=== PATIENT | male | born 1995 | race Caucasian/White ===

== ENCOUNTER 2019-09-03 21:43 | Emergency (ER) | payer SELFPAY ==
[~2019-09-03] VITALS: Ht 180.3 cm; Wt 72.1 kg
[2019-09-03 21:52] VITALS: BP 118/66
--- NOTE | 2019-09-03 21:56 | NUR ---
PT AMBULATED TO CHAIR C WITH STEADY GAIT.
--- NOTE | 2019-09-03 21:59 | NUR ---
PT TRANSFERRED TO BED 04 WITH STEADY GAIT.
--- NOTE | 2019-09-03 22:04 | NUR ---
23 YO M BIB SELF FOR C/C OF DIFFICULTY SWALLOWING AND 6/10 CHEST TIGHTNESS/PRESSURE. 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 PT STATES HIS SYMPTOMS HAVE BEEN GETTING INCREASINGLY WORSE THE PAST 2 WEEKS. PT DENIES TAKING ANY RX FOR DISCOMFORT. LUNG SOUNDS CLEAR THROUGHOUT. S1 S2 HEARD. PT DENIES N/V/D. DENIES COUGH, TRAVEL, OR FEVER. BED LCOKED AND IN LOWEST POSTION. SIDE RAILS X1. NKA NO MED HX NO RX
[2019-09-03] MEDS ORDERED: ALUMINUM HYD/MAG/SIMETHICONE 30 ML UDC PO ONE (22:20)
[2019-09-03] MEDS ORDERED: PANTOPRAZOLE 40 MG TABEC PO ONE (22:20)
[2019-09-03 22:44] VITALS: BP 118/66
--- NOTE | 2019-09-03 22:45 | NUR ---
Patient discharged with v/s stable. Written and verbal after care instructions given and explained. Patient alert, oriented and verbalized understanding of instructions. Ambulatory with steady gait. All questions addressed prior to discharge. ID band removed. Patient advised to follow up with PMD. Rx of PROTONIX given. Patient educated on indication of medication including possible reaction and side effects. Opportunity to ask questions provided and answered.
== END 2019-09-03 22:45 | disposition home or self-care (01) ==
LOC: MED 21:43
DX: K29.70 Gastritis, unspecified, without bleeding (principal)
CPT/HCPCS: 99283